=== PATIENT | female | born 1965 | race Caucasian/White ===

== ENCOUNTER 2020-10-03 09:57 | Emergency (ER) | payer OTHER ==
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
--- NOTE | 2020-10-03 11:27 | XR ---
EXAMINATION TYPE: XR hand complete LT DATE OF EXAM: 10/03/2020 CLINICAL HISTORY: Injury with pain worse over third finger. TECHNIQUE: Frontal, lateral and oblique images of the left hand are obtained. COMPARISON: None. FINDINGS: There is no acute fracture/dislocation evident in the left hand. [id number] narrowin g throughout the PIP and the DIP joints of the phalanges. Mild to moderate diffuse soft tissue swelli ng second through fourth fingers greatest over the third finger. IMPRESSION: There is no acute fracture or dislocation in the left hand.
--- NOTE | 2020-10-03 11:41 | XR ---
EXAMINATION TYPE: XR ribs RT w pa chest xray DATE OF EXAM: 10/03/2020 CLINICAL HISTORY: Injury with chest and right-sided rib pain. TECHNIQUE: Single frontal view of the chest is obtained. A frontal and oblique images of the right-si ded ribs. COMPARISON: None FINDINGS: There is no suspicious focal air space opacity, pleural effusion, or pneumothorax seen. T he cardiac silhouette size is within normal limits. The osseous structures are intact. Dedicated images of right-sided ribs show no acute displaced fracture. Overlying soft tissue is unrem arkable. IMPRESSION: 1. No acute cardiopulmonary process. 2. No acute displaced right-sided rib fracture.
[2020-10-03] MEDS ORDERED: IBUPROFEN 600 MG TAB PO STA (12:02)
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
[2020-10-03 12:33] VITALS: BP 127/79; PULSE 72; RESP 19; TEMP 98.2
== END 2020-10-03 12:33 | disposition home or self-care (01) ==
LOC: EC 09:57
DX: S20.219A Contusion of unspecified front wall of thorax, initial encounter (principal); S60.413A Abrasion of left middle finger, initial encounter; F32.9 Major depressive disorder, single episode, unspecified; F17.200 Nicotine dependence, unspecified, uncomplicated; V19.9XXA Pedal cyclist (driver) (passenger) injured in unspecified traffic accident, initial encounter; Y93.55 Activity, bike riding
CPT/HCPCS: 99283

== ENCOUNTER → 2022-10-07 | Outpatient (CLI) | payer OTHER ==
--- NOTE | 2022-10-08 06:28 | MR ---
EXAMINATION TYPE: MR knee LT wo con DATE OF EXAM: 10/07/2022 COMPARISON: Outside left knee x-ray September 29, 2022 HISTORY: Left knee pain and swelling for 6 months since. TECHNIQUE: Multiplanar, multisequence images of the knee is performed without IV contrast. FINDINGS: MEDIAL MENISCUS: Anterior and posterior horns are intact without tear. LATERAL MENISCUS: Anterior and posterior horns are intact without tear. CRUCIATE LIGAMENTS: The anterior and posterior cruciate ligaments are intact and unremarkable. COLLATERAL LIGAMENTS: The medial collateral ligament and lateral collateral ligament complex are inta ct and unremarkable. EXTENSOR MECHANISM: Visualized quadriceps and patellar tendons are intact. EFFUSION: Small size suprapatellar joint effusion. POPLITEAL CYST: No popliteal/richard cyst. TRICOMPARTMENT SPACES: Mild to moderate tricompartment joint space loss without significant spurring. CARTILAGE: Some cartilaginous loss medial tibiofemoral compartment. BONE MARROW SIGNAL: Medial aspect medial tibial plateau as oval 11 mm lesion of T1 hypointensity and T2 hyperintensity favoring subchondral cyst or other nonaggressive etiology. OTHER: No additional significant abnormality is appreciated. IMPRESSION: 1. Mild/moderate tricompartment degenerative changes as detailed above. Small size suprapatellar join t effusion. No meniscal or ligamentous tear is seen.
== END | disposition home or self-care (01) ==
LOC: RADMRIMAIN 17:34
PROVIDERS: ATTEND Orthopaedic Surgery
DX: M17.12 Unilateral primary osteoarthritis, left knee (principal); M25.462 Effusion, left knee

== ENCOUNTER → 2023-09-21 | Outpatient (CLI) | payer OTHER ==
--- NOTE | 2023-09-22 12:20 | MR ---
EXAMINATION TYPE: MR shoulder RT wo con DATE OF EXAM: 09/21/2023 COMPARISON: Outside right shoulder x-ray September 21, 2023 HISTORY: Right shoulder pain with difficulty raising arm overhead for one year increasing in severity recently. TECHNIQUE: Multiplanar, multisequence imaging of the right shoulder is performed without contrast. FINDINGS: Rotator Cuff: Increased signal in the infraspinatus and supraspinatus tendons. Some focal fluid withi n the muscle fibers of the posterior supraspinatus and anterior infraspinatus tendon coronal image 15 for reference. Heterogeneity increased signal of the subscapularis tendon. Rotator cuff muscle bulk is maintained. Acromioclavicular Joint: Mild to moderate narrowing and moderate capsular hypertrophy. Glenohumeral Joint: Small to moderate size joint effusion. No significant spurring. Labrum: The labrum appears grossly intact given limitation of non-arthrogram study. Biceps Tendon: The long head of biceps is in normal location within bicipital groove. Increased signa l and thickening of the intracapsular portion is present Bone marrow signal: No focal abnormal marrow signal is appreciated. Other: No additional significant abnormality is appreciated. IMPRESSION: 1. Tendinosis/partial tearing of the supraspinatus and infraspinatus tendons as well as the subscapul winter tendon. 2. Tendinosis/partial tearing of the intracapsular portion of the long head of biceps tendon. 3. Fairly moderate degenerative changes are present as detailed above.
== END | disposition home or self-care (01) ==
LOC: RADMRIMAIN 13:03
PROVIDERS: ATTEND Orthopaedic Surgery
DX: M19.012 Primary osteoarthritis, left shoulder (principal); M75.111 Incomplete rotator cuff tear or rupture of right shoulder, not specified as traumatic

== ENCOUNTER → 2024-03-17 | Outpatient (CLI) | payer OTHER ==
[2024-03-17 18:15] LABS: Basophils # (A) 0.11 X 10*3/uL (0.00-0.10); Basophils % (A) 1.2 %; Eosinophils # (A) 0.31 X 10*3/uL (0.04-0.35); Eosinophils % (A) 3.5 %; HGB 13.9 g/dL (12.0-15.0); Lymphocytes # (A) 2.62 X 10*3/uL (0.90-5.00); Lymphocytes % (A) 29.4 %; MCH 30.3 pg (27.0-32.0); MCHC 32.3 g/dL (32.0-37.0); MCV 93.7 FL (80.0-97.0); Mean Platelet Volume 10.1 FL (9.5-12.2); Monocytes # (A) 0.71 X 10*3/uL (0.20-1.00); NRBC Per 100 WBC 0 X 10*3/uL (0.00-0.01); Neutrophils # (A) 5.16 X 10*3/uL (1.80-7.70); Neutrophils % (A) 57.8 %; Platelet Count 368 X 10*3/uL (140-440); RBC 4.59 X 10*6/uL (4.10-5.20); RDW 12.2 % (11.5-14.5); WBC 8.92 X 10*3/uL (4.50-10.00)
[2024-03-17 19:17] LABS: Anion Gap 10.3 mmol/L (4.00-12.00); Carbon Dioxide 25.7 mmol/L (21.6-31.8); Potassium 5.3 mmol/L (3.5-5.5)
== END | disposition home or self-care (01) ==
LOC: LABPAT 13:09
PROVIDERS: ATTEND Orthopaedic Surgery
DX: M75.41 Impingement syndrome of right shoulder (principal)
CPT/HCPCS: 80051; 85025

== ENCOUNTER → 2024-04-27 | Day surgery (SDC) | payer OTHER ==
[2024-03-22 11:35] VITALS: BMI 24.2
[~2024-04-27] MED LIST: DEXAMETHASONE SOD PHOSPHATE 4 MG/ML 1 ML VIAL ONE; LIDOCAINE 1% (10MG/ML) FOR IV START INTRADERMA PRN; LIDOCAINE 1% INJ 10MG/ML (20 ML MDV) ONE; PHENYLEPHRINE 10 MG/ML VIAL ONE; PROPOFOL 10 MG/ML 20 ML VIAL IV ONE; ROCURONIUM 10 MG/ML (5 ML VIAL) IV ONE; ROPIVACAINE 5 MG/ML 30 ML VIAL ONE; SUCCINYLCHOLINE CHLORIDE 200 MG/10 ML VIAL IV ONE; SUGAMMADEX SODIUM 100 MG/ML SYR IV ONE; ePHEDrine 50 MG/ML 1 ML VIAL ONE; fentaNYL (PF) 50 MCG/ML 2 ML AMP IVP PRN
--- NOTE | 2024-04-27 04:13 | HP ---
HISTORY AND PHYSICAL DATE OF SURGERY: 04/27/2024. HISTORY OF PRESENT ILLNESS: Audrey Pfeiffer is a 58-year-old patient seen with progressive right shoulder pain. We discussed options. She elected to proceed with arthroscopy. Consent was obtained. Cardiac clearance was provided by Dr. Guillen. PAST MEDICAL HISTORY: Hypertension. PAST SURGICAL HISTORY: Noncontributory. DAILY MEDICATIONS: 1. Adderall. 2. Meloxicam. ALLERGIES: Penicillin. SOCIAL HISTORY: She smokes cigarettes. PHYSICAL EVALUATION OF THE RIGHT SHOULDER: Flexion is 90 degrees. Abduction is 40 degrees. External rotation is 40 degrees with pain and weakness. Tenderness, anterolateral acromion, rotator cuff, and long head biceps tendon. Impingement is positive at 70 degrees. Cross-body adduction sign is positive. Drop-arm sign is positive. Distal neurovascular exam is intact. IMAGING STUDIES: Right shoulder radiographs revealed a type 2 acromion evidence for acromioclavicular joint osteoarthritis. Right shoulder MRI revealed rotator cuff tendon tear, partial biceps tendon tear, and acromioclavicular joint osteoarthritis. IMPRESSION: 1. Right shoulder impingement with rotator cuff tear. 2. Right shoulder partial long head biceps tendon tear. 3. Right shoulder acromioclavicular joint osteoarthritis. 4. Hypertension. PLAN: Right shoulder arthroscopy with rotator cuff repair, subacromial decompression, biceps tenodesis, Kenzie, and debridement of labral tear. MMODL / IJN: [id number] /
[2024-04-27] MEDS: IV FLUID CONTINUATION 1,000 ML IV ONE (06:13)
[2024-04-27] MEDS: ONDANSETRON 4 MG/2 ML VIAL IVP ONE (06:53)
[2024-04-27] MEDS: DEXAMETHASONE SOD PHOSPHATE 4 MG/ML 1 ML VIAL IV ONE (06:54)
[2024-04-27] MEDS: LACTATED RINGERS 1,000 ML IV SCH (06:54)
[2024-04-27] MEDS: MIDAZOLAM 2 MG/2 ML VIAL IV PRN (07:09)
[2024-04-27] MEDS: LACTATED RINGERS 1,000 ML IV ONE (08:30)
--- NOTE | 2024-04-27 09:04 | P.OP ---
Date of Procedure: 04/27/24 Preoperative Diagnosis: Right shoulder impingement Postoperative Diagnosis: 1. Right shoulder rotator cuff tear 2. Right shoulder impingement 3. Right shoulder partial long head biceps tendon tear 4. Right shoulder acromioclavicular joint osteoarthritis 5. Right shoulder labral tear Procedure(s) Performed: 1. Right shoulder arthroscopic rotator cuff repair 2. Right shoulder arthroscopic subacromial decompression 3. Right shoulder arthroscopic biceps tenodesis 4. Right shoulder arthroscopic Kenzie procedure 5. Right shoulder arthroscopic debridement labral tear Implants: 1Arthrex 5.5 swivel lock anchor 1Arthrex 4.75 swivel lock anchor Anesthesia: GETA, regional (Interscalene block) Surgeon: Nelson Marrero Senior Computer Specialist #1: Ez Fleming Estimated Blood Loss (ml): 10 Pathology: none sent Condition: stable Disposition: PACU Indications for Procedure: 58-year-old patient seen with progressive right shoulder pain. After having treatment options discussed, she elected to proceed with arthroscopy. Operative Findings: See description of procedure Description of Procedure: Patient underwent an interscalene block by department of anesthesia. The patie nt was then taken to the operative suite. The patient underwent a general anesthetic by the department of anesthesia. The patient was placed into a lateral position and secured. There was appropriate padding of the bony prominence. Right shoulder was then prepped and draped in normal sterile orthopedic fashion. We placed the extremity in 10 pounds of longitudinal traction. A posterior incision was now made for a posterior working portal site. The trocar and cannula were inserted into the glenohumeral joint. Arthroscopy was initiated. Spinal needle was now inserted anteriorly, to ascertain the anterior working portal site. An incision was now made in that area, a trocar was inserted followed by a probe. There was some superficial tearing of the superior labrum. There were mild grade I chondromalacia changes of the glenoid fossa and none of the humeral head. There was partial tearing of the long head biceps tendon and an obvious rotator cuff tear. I debrided out the superficial labral tear. I placed a cannula through the anterior portal site. I performed a loop and tack stitch through the biceps tendon and then release it through the superior labral anchor. With the assistance of Adrián TORRES partial hole at the interval. I now passed the suture limb through the eyelet of an Arthrex 4.75 swivel lock anchor. I placed the eyelet into the prepunch hole, held in position while Adrián TORRES tensioned the suture and deployed the anchor with good fixation noted. The residual suture limb was clipped. We had a stable appearing biceps tenodesis. Instruments were now removed from the glenohumeral joint. Utilizing the posterior working portal site, the trocar and cannula were inserted into the subacromial space. Arthroscopy initiated. I made an incision 2 fingerbreadths lateral to the acromion. I introduced my trocar followed by my ArthroCare ablator. I now began ablating thick subacromial bursal tissue, which exposed the undersurface of the anterior acromion. There was diminished subacromial space. There was a very prominent anterior acromion. A motorized bur was introduced and a subacromial decompression was performed. I also excised some osteophytes off the inferior aspect of the distal clavicle. The AC joint was visualized and noted to be fairly arthritic. The motorized bur was introduced in the anterior portal site and a Kenzie procedure was performed without difficulty removing 8 mm of bone off the distal clavicle removing, decompressing the AC joint nicely. I turned my attention to the rotator cuff. There was a 1.5 the defect measured approximate 1.5 cm and was freely mobile over the footprint. Cm rotator cuff tear. I debrided the margins getting down to stable tendon tissue. I introduced my motorized bur and abraded the footprin t area, getting some petechial bleeding. With the assistance of Adrián TORRES I passed 3 everted mattress sutures through good bites of rotator cuff tendon. I punched a hole in the footprint area for insertion of an anchor. All 6 limbs of suture were passed through the eyelet of an Arthrex 5.5 swivel lock anchor. I placed the eyelet into the prepunched a hole, I held in position while Adrián TORRES tension all 6 limbs of suture and deployed the anchor with good fixation noted. All residual suture limbs were now clipped. We had good compression of the tendon along the entire footprint. Instruments now removed from the portal sites. All portal sites were approximated with nylon suture. Sterile dressings were applied followed by a shoulder sling. Ez TORRES assisted in this complex case. The patient was awakened, transferred to a bed, and taken to recovery in stable condition.
[2024-04-27 09:05] VITALS: TEMP 97
[2024-04-27] MEDS: HYDROmorphone 0.5 MG/0.5 ML SYRINGE IVP PRN (09:12)
[2024-04-27 10:51] VITALS: BP 142/90; PULSE 65; RESP 16
--- NOTE | 2024-04-27 17:55 | P.ANPRN ---
Procedure Note - Anesthesia - Nerve Block Performed Right Interscalene Single Time Out Performed: Yes Date of Procedure: 04/27/24 Procedure Start Time: :09 Procedure Stop Time: 07:12 Location of Patient: PreOp Indication: Acute Post-Operative Pain, Requested by Surgeon Sedation Type: Sedate with meaningful contact maintained Preparation: Sterile Prep Position: Supine Needle Types: Pajunk Needle Gauge: 21 Ultrasound used to visualize needle placement: Yes Ultrasound used to observe medication spread: Yes Blood Aspirated: No Pain Paresthesia on Injection Noted: No Resistance on Injection: Normal Image Stored and Saved: Yes Events: Uneventful and Well Tolerated (Ropivacaine 0.5% 20 cc plus dexamethasone 4 mg)
== END | disposition home or self-care (01) ==
LOC: OR 05:46
PROVIDERS: ATTEND Orthopaedic Surgery
DX: S43.491A Other sprain of right shoulder joint, initial encounter (principal); M19.011 Primary osteoarthritis, right shoulder; M75.41 Impingement syndrome of right shoulder; M75.101 Unspecified rotator cuff tear or rupture of right shoulder, not specified as traumatic; I10 Essential (primary) hypertension; G89.18 Other acute postprocedural pain; F17.210 Nicotine dependence, cigarettes, uncomplicated; Z88.0 Allergy status to penicillin; X58.XXXA Exposure to other specified factors, initial encounter
CPT/HCPCS: 64415; 84132; 29824; 29827; 29828; C1713 ×3; J2250; J0330; J1100; J0690; J2405; J2003; J2795; J2704; J1171; J2371